=== PATIENT | male | born 1960 | race Caucasian/White ===

== ENCOUNTER 2019-03-10 13:52 | Emergency (ER) | payer MEDICAID ==
[~2019-03-10] VITALS: Ht 170.2 cm; Wt 77.1 kg
[~2019-03-10 13:52] MED LIST: ASPI325T4 PO; MULTTAB61 PO
[2019-03-10 14:31] LABS: Basophils # (auto) 0.2 uL; Eosinophils # (auto) 0 uL; Eosinophils % (auto) 0.5 % (0.0-7.0); Hematocrit 49.9 % (41.0-53.0); Hemoglobin 17.3 g/dL (13.5-17.5); Lymphocytes # (auto) 2.2 uL; Lymphocytes % (auto) 22.7 % (10.0-50.0); Mean Corpuscular Hemoglobin 29.7 pg (28.0-32.0); Mean Corpuscular Hgb Conc. 34.6 g/dL (32.0-36.0); Mean Corpuscular Volume 85.8 fL (80.0-100.0); Monocytes # (auto) 0.5 uL; Monocytes % (auto) 4.8 % (0.0-12.0); Neutrophils # (auto) 6.7 uL; Nucleated Red Blood Cells % 0.1 %; Platelet Count (auto) 354 10^3/uL (140-450); Red Blood Cells 5.82 10^6/uL (4.5-5.90); Red Cell Distribution Width 13.5 % (11.8-14.3); White Blood Cell 9.6 10^3/uL (4.4-10.8)
[2019-03-10 14:33] LABS: Urine Bacteria NONE SEEN /hpf (None Seen); Urine Blood 2+ /uL (Negative); Urine Hyaline Cast FEW /lpf (0 - 2); Urine Specific Gravity 1.023 (1.001-1.035); Urine WBC 103 /hpf (0 - 3)
[2019-03-10 14:37] LABS: Calcium 9.7 mg/dL (8.5-10.1)
[2019-03-10 14:43] LABS: Albumin 3.6 g/dL (3.4-5.0); BUN/Creatinine Ratio 13.7; Bilirubin, Total 0.8 mg/dL (0.2-1.0)
[2019-03-10 18:00] VITALS: BP 130/82
[2019-03-10] MEDS ORDERED: cefTRIAXone SOD 1,000 MG VL IM ONE (18:00)
[2019-03-10] MEDS ORDERED: TAMSULOSIN HYDROCHLORIDE 0.4 MG CAP PO ONE (19:15)
== END 2019-03-10 19:24 | disposition home or self-care (01) ==
LOC: ER 13:52
DX: N20.0 Calculus of kidney (principal); N21.0 Calculus in bladder; N39.0 Urinary tract infection, site not specified; F17.210 Nicotine dependence, cigarettes, uncomplicated; F12.90 Cannabis use, unspecified, uncomplicated; Z79.82 Long term (current) use of aspirin; Z89.512 Acquired absence of left leg below knee
CPT/HCPCS: 36415; 74176; 80053; 81001; 85025; 96372; 99284; J0696

== ENCOUNTER 2019-05-14 09:26 | Emergency (ER) | payer MEDICAID ==
[~2019-05-14] VITALS: Ht 170.2 cm; Wt 74.8 kg
[2019-05-14 09:40] VITALS: BP 139/90
[2019-05-14] MEDS ORDERED: cefTRIAXone SOD 1,000 MG VL IM ONE (10:45)
[2019-05-14] MEDS ORDERED: IBUPROFEN 800 MG TAB PO ONE (10:45)
== END 2019-05-14 11:04 | disposition home or self-care (01) ==
LOC: ER 09:29
DX: A46 Erysipelas (principal); F17.210 Nicotine dependence, cigarettes, uncomplicated; F12.10 Cannabis abuse, uncomplicated; Z91.030 Bee allergy status
CPT/HCPCS: 96372; 99283; J0696

== ENCOUNTER 2022-04-28 16:06 | Emergency (ER) | payer MEDICAID ==
[~2022-04-28] VITALS: Ht 170.2 cm; Wt 75.0 kg
[~2022-04-28 16:06] MED LIST changes: +MULT-1018 PO; -MULTTAB61 PO
[2022-04-28 18:10] VITALS: BP 141/104
[2022-04-28] MEDS ORDERED: CEPH-510 PO (18:39)
[2022-04-28] MEDS ORDERED: ACET-1158 PO (18:39)
[2022-04-28] MEDS ORDERED: LIDOCAINE 1% HCL (LOCAL ANESTH.) INJ 20ML MDV ID ONE (20:00)
[2022-04-28] MEDS ORDERED: BACITRACIN TOP OINT 1 UD PKG TOP ONE (20:45)
== END 2022-04-28 21:00 | disposition home or self-care (01) ==
LOC: ER 16:06
DX: S51.812A Laceration without foreign body of left forearm, initial encounter (principal); F17.210 Nicotine dependence, cigarettes, uncomplicated; F12.10 Cannabis abuse, uncomplicated; W18.00XA Striking against unspecified object with subsequent fall, initial encounter; Y93.89 Activity, other specified; Y92.89 Other specified places as the place of occurrence of the external cause; Y99.8 Other external cause status
CPT/HCPCS: 12005; 73090; 99283; J2001

== ENCOUNTER 2022-05-01 10:23 | Emergency (ER) | payer MEDICAID ==
[~2022-05-01] VITALS: Ht 170.2 cm; Wt 74.0 kg
[~2022-05-01 10:23] MED LIST changes: +ACET-1158 PO; +CEPH-510 PO
[2022-05-01 14:10] LABS: Basophils # (auto) 0.2 10 ^3/uL (0-0.2); Basophils % (auto) 1.3 % (0.0-2.0); Eosinophils # (auto) 0.2 10 ^3/uL (0-0.8); Hemoglobin 15.8 g/dL (13.5-17.5); Lymphocytes # (auto) 2.7 10 ^3/uL (0.4-5.4); Lymphocytes % (auto) 23.1 % (10.0-50.0); Mean Corpuscular Hemoglobin 28.3 pg (28.0-32.0); Mean Corpuscular Hgb Conc. 32.3 g/dL (32.0-36.0); Mean Corpuscular Volume 87.8 fL (80.0-100.0); Monocytes % (auto) 8.9 % (0.0-12.0); Neutrophils # (auto) 7.5 10 ^3/uL (1.6-8.6); Neutrophils % (auto) 64.7 % (37.0-80.0); Nucleated Red Blood Cells % 0.1 %; Red Blood Cells 5.58 10^6/uL (4.5-5.90); Red Cell Distribution Width 13.6 % (11.8-14.3); White Blood Cell 11.7 10^3/uL (4.4-10.8)
[2022-05-01 14:37] LABS: Albumin 3.1 g/dL (3.4-5.0); Calcium 9.3 mg/dL (8.5-10.1); Potassium 4.7 mmol/L (3.5-5.1)
[2022-05-01 14:43] LABS: BUN/Creatinine Ratio 27.7; Bilirubin, Total 0.4 mg/dL (0.2-1.0); Total Protein 7.3 g/dL (6.4-8.2)
[2022-05-01] MEDS ORDERED: CEFTRIAXONE SODIUM 2 GM in D5W 5% 50 ML IV ONE (19:00)
[2022-05-01] MEDS ORDERED: VANCOMYCIN 1GM/250ML 250 ML IV ONE (19:15)
[2022-05-01] MEDS ORDERED: VANCOMYCIN PER PHARMACY 1,000 MG IV SCH ×2 (19:15)
[2022-05-01] MEDS ORDERED: HYDROcodone-ACET 5/325MG TAB PO PRN (19:30)
[2022-05-01] MEDS ORDERED: ACETAMINOPHEN 325 MG TAB PO PRN (19:30)
[2022-05-01] MEDS ORDERED: SODIUM CHLORIDE 0.9% 1,000 ML IV SCH (19:30)
[2022-05-01] MEDS ORDERED: VANCOMYCIN PER PHARMACY 0 MG IV SCH (19:30)
[2022-05-01 20:00] VITALS: BP 156/98
[2022-05-01] MEDS ORDERED: MEROPENEM 1GM IVPB 100 ML IV SCH ×2 (22:00)
[2022-05-01] MEDS ORDERED: ASCORBIC ACID 500 MG TAB PO SCH (22:00)
[2022-05-02] MEDS ORDERED: ENOXAPARIN SOD 40 MG/0.4 ML SYRINGE SC SCH (10:00)
[2022-05-02] MEDS ORDERED: MULTIPLE VITAMIN TAB PO SCH (10:00)
[2022-05-02] MEDS ORDERED: ZINC SULFATE 220mg CAP or TAB PO SCH (10:00)
== END 2022-05-01 21:37 | disposition left against medical advice (07) ==
LOC: ER 10:23 → UNDOADMIN 19:24 → OVERFLOW 19:24 → UNDODISIN 21:37
DX: L02.414 Cutaneous abscess of left upper limb (principal); L03.114 Cellulitis of left upper limb; F17.210 Nicotine dependence, cigarettes, uncomplicated; Z79.82 Long term (current) use of aspirin; Z79.899 Other long term (current) drug therapy; Z91.030 Bee allergy status
CPT/HCPCS: 36415; 73200; 80053; 85025; 85652; 86141; 87040; 96365; 99284; J3370; G0378; J0696; J7060

== ENCOUNTER 2022-11-30 14:53 | Inpatient (IN) | payer MEDICAID ==
[~2022-11-30] VITALS: Ht 170.2 cm; Wt 65.0 kg
[~2022-11-30 14:53] MED LIST changes: -ACET-1158 PO; +ACET500T58 PO
[2022-11-30] MEDS ORDERED: SODIUM CHLORIDE 0.9% 1,000 ML IV ONE (20:15)
[2022-11-30] MEDS ORDERED: PROCHLORPERAZINE EDISYLATE 5 MG/ML 2ML VIAL IV ONE (20:15)
[2022-11-30 22:23] LABS: Basophils # (auto) 0.1 10 ^3/uL (0-0.2); Basophils % (auto) 1.3 % (0.0-2.0); Eosinophils # (auto) 0.3 10 ^3/uL (0-0.8); Eosinophils % (auto) 2.5 % (0.0-7.0); Hematocrit 43.8 % (41.0-53.0); Hemoglobin 14.8 g/dL (13.5-17.5); Lymphocytes # (auto) 3.2 10 ^3/uL (0.4-5.4); Lymphocytes % (auto) 29.7 % (10.0-50.0); Mean Corpuscular Hemoglobin 28.9 pg (28.0-32.0); Mean Corpuscular Hgb Conc. 33.7 g/dL (32.0-36.0); Mean Corpuscular Volume 85.9 fL (80.0-100.0); Monocytes # (auto) 1.1 10 ^3/uL (0-1.3); Monocytes % (auto) 9.7 % (0.0-12.0); Neutrophils # (auto) 6.2 10 ^3/uL (1.6-8.6); Neutrophils % (auto) 56.8 % (37.0-80.0); Nucleated Red Blood Cells % 0.1 %; Red Cell Distribution Width 14.7 % (11.8-14.3); White Blood Cell 10.9 10^3/uL (4.4-10.8)
[2022-11-30 22:33] LABS: INR 0.97 (0.9-1.15); Partial Thromboplastin Time 26.2 sec (24.6-33.4)
[2022-11-30 22:43] LABS: Albumin 2.7 g/dL (3.4-5.0); Calcium 7.7 mg/dL (8.5-10.1); Potassium 3.8 mmol/L (3.5-5.1)
[2022-11-30 22:47] LABS: BUN/Creatinine Ratio 20.5 (10.0-20.0); Bilirubin, Total 0.8 mg/dL (0.2-1.0); Total Protein 6.4 g/dL (6.4-8.2)
[2022-11-30] MEDS ORDERED: CLINDAMYCIN 600MG IV 50 ML IV ONE (23:00)
[2022-11-30] MEDS ORDERED: KETOROLAC TROMETH 30 MG/ML 1ML VIAL IV ONE (23:15)
[2022-11-30] MEDS ORDERED: MELO10CA2 PO (23:17)
[2022-11-30] MEDS ORDERED: CLIN300C70 PO (23:17)
[2022-12-01] MEDS ORDERED: ONDANSETRON HCL 4 MG/2 ML VIAL IV PRN (00:15)
[2022-12-01] MEDS ORDERED: DOCUSATE SOD 100 MG CAP PO PRN (00:15)
[2022-12-01] MEDS ORDERED: NITROGLYCERIN 0.4 MG SL TAB SL PRN (00:15)
[2022-12-01] MEDS ORDERED: MORPHINE SULFATE INJ 2 MG/ml SYRG IV PRN ×2 (00:15)
[2022-12-01] MEDS: ACETAMINOPHEN 325 MG TAB PO PRN (03:39)
[2022-12-01 05:33] LABS: Basophils # (auto) 0.4 10 ^3/uL (0-0.2); Basophils % (auto) 3.6 % (0.0-2.0); Eosinophils # (auto) 0.3 10 ^3/uL (0-0.8); Eosinophils % (auto) 2.4 % (0.0-7.0); Hematocrit 44.3 % (41.0-53.0); Hemoglobin 14.8 g/dL (13.5-17.5); Lymphocytes % (auto) 28.2 % (10.0-50.0); Mean Corpuscular Hemoglobin 28.6 pg (28.0-32.0); Mean Corpuscular Hgb Conc. 33.3 g/dL (32.0-36.0); Monocytes % (auto) 9.1 % (0.0-12.0); Neutrophils # (auto) 6.1 10 ^3/uL (1.6-8.6); Neutrophils % (auto) 56.7 % (37.0-80.0); Nucleated Red Blood Cells % 0.1 %; Red Blood Cells 5.16 10^6/uL (4.5-5.90); Red Cell Distribution Width 14.8 % (11.8-14.3); White Blood Cell 10.8 10^3/uL (4.4-10.8)
[2022-12-01 05:40] LABS: Albumin 2.7 g/dL (3.4-5.0); Calcium 7.8 mg/dL (8.5-10.1); Potassium 3.9 mmol/L (3.5-5.1)
[2022-12-01 05:44] LABS: BUN/Creatinine Ratio 28.4 (10.0-20.0); Total Protein 6.6 g/dL (6.4-8.2)
[2022-12-01] MEDS: SODIUM CHLOR 0.9% PF (SALINE LOCK) 10ML VIAL/SYR IV SCH ×3 (06:00→22:05)
[2022-12-01] MEDS ORDERED: CLINDAMYCIN 600MG IV 50 ML IV SCH (06:00)
[2022-12-01] MEDS: SOD CHL 0.45% 1,000 ML IV SCH ×2 (12:49→21:44)
[2022-12-01] MEDS ORDERED: PIPERACILLIN-TAZOB 3.375GM 100 ML IV SCH (14:00)
[2022-12-01] MEDS ORDERED: CEFTRIAXONE SODIUM 2 GM in D5W 5% 100 ML IV ONE (18:45)
[2022-12-01] MEDS: metroNIDAZOLE 500MG/100ML 100 ML IV SCH (22:48)
[2022-12-02] MEDS: SODIUM CHLOR 0.9% PF (SALINE LOCK) 10ML VIAL/SYR IV SCH ×3 (06:00→21:25)
[2022-12-02] MEDS: metroNIDAZOLE 500MG/100ML 100 ML IV SCH ×3 (07:40→21:16)
[2022-12-02 07:46] LABS: Basophils # (auto) 0 10 ^3/uL (0-0.2); Basophils % (auto) 0.3 % (0.0-2.0); Eosinophils # (auto) 0.1 10 ^3/uL (0-0.8); Eosinophils % (auto) 0.9 % (0.0-7.0); Hematocrit 46.7 % (41.0-53.0); Hemoglobin 15.5 g/dL (13.5-17.5); Lymphocytes # (auto) 2.4 10 ^3/uL (0.4-5.4); Lymphocytes % (auto) 20.2 % (10.0-50.0); Mean Corpuscular Hemoglobin 28.3 pg (28.0-32.0); Mean Corpuscular Hgb Conc. 33.1 g/dL (32.0-36.0); Mean Corpuscular Volume 85.5 fL (80.0-100.0); Monocytes # (auto) 1.1 10 ^3/uL (0-1.3); Monocytes % (auto) 9.2 % (0.0-12.0); Neutrophils # (auto) 8.1 10 ^3/uL (1.6-8.6); Neutrophils % (auto) 69.4 % (37.0-80.0); Nucleated Red Blood Cells % 0.1 %; Red Blood Cells 5.46 10^6/uL (4.5-5.90); Red Cell Distribution Width 14.7 % (11.8-14.3); White Blood Cell 11.7 10^3/uL (4.4-10.8)
[2022-12-02 08:11] LABS: Albumin 2.7 g/dL (3.4-5.0); Calcium 8.3 mg/dL (8.5-10.1); Potassium 4.3 mmol/L (3.5-5.1)
[2022-12-02 08:15] LABS: BUN/Creatinine Ratio 27.9 (10.0-20.0); Bilirubin, Total 0.6 mg/dL (0.2-1.0); Total Protein 6.9 g/dL (6.4-8.2)
[2022-12-02] MEDS: SOD CHL 0.45% 1,000 ML IV SCH ×2 (10:01→18:58)
[2022-12-02] MEDS: CEFTRIAXONE SODIUM 2 GM in D5W 5% 100 ML IV SCH (10:01)
[2022-12-02] MEDS: ACETAMINOPHEN 325 MG TAB PO PRN (16:46)
[2022-12-02 16:48] VITALS: BP 157/87
[2022-12-02 20:04] LABS: Hepatitis C Antibody Positive (Negative)
[2022-12-02 22:00] VITALS: BP 132/93
[2022-12-03] VITALS (7 sets, daily range): BP systolic 134–163; BP diastolic 82–98
[2022-12-03] MEDS: metroNIDAZOLE 500MG/100ML 100 ML IV SCH ×3 (06:13→23:23)
[2022-12-03] MEDS: SODIUM CHLOR 0.9% PF (SALINE LOCK) 10ML VIAL/SYR IV SCH ×3 (06:13→22:00)
[2022-12-03] MEDS: CEFTRIAXONE SODIUM 2 GM in D5W 5% 100 ML IV SCH (09:29)
[2022-12-03] MEDS ORDERED: IBUP-1454 PO (10:56)
[2022-12-03] MEDS ORDERED: AMOX500T86 PO (10:56)
[2022-12-03] MEDS ORDERED: FAMO-161 PO (10:56)
[2022-12-03 12:39] LABS: Alcohol, Urine < 3.0 mg/dL (0-10); Amphetamine Screen, Urine NEGATIVE (NEGATIVE); Barbiturate Scree,Urine NEGATIVE (NEGATIVE); Benzodiazephine Screen, Urine NEGATIVE (NEGATIVE); Cannabinoid Screen, Urine POSITIVE (NEGATIVE); Cocaine Screen, Urine NEGATIVE (NEGATIVE); Opiate Scree,Urine NEGATIVE (NEGATIVE); Phencyclidine Screen, Urine NEGATIVE (NEGATIVE)
[2022-12-03] MEDS: hydrALAZINE HCL 20 MG/ML VL IV PRN (18:04)
[2022-12-03] MEDS: ACETAMINOPHEN 325 MG TAB PO PRN ×2 (23:09→23:23)
[2022-12-04] MEDS: hydrALAZINE HCL 20 MG/ML VL IV PRN ×2 (03:03→12:18)
[2022-12-04 05:00] VITALS: BP 124/78
[2022-12-04] MEDS: SODIUM CHLOR 0.9% PF (SALINE LOCK) 10ML VIAL/SYR IV SCH ×3 (05:55→22:02)
[2022-12-04] MEDS: metroNIDAZOLE 500MG/100ML 100 ML IV SCH ×3 (05:55→20:59)
[2022-12-04] MEDS: ACETAMINOPHEN 325 MG TAB PO PRN ×2 (05:56→18:17)
[2022-12-04 08:00] VITALS: BP 128/85
[2022-12-04 09:00] VITALS: BP 128/85
[2022-12-04] MEDS: CEFTRIAXONE SODIUM 2 GM in D5W 5% 100 ML IV SCH (10:18)
[2022-12-04 13:00] VITALS: BP 161/97
[2022-12-04 17:00] VITALS: BP 133/81
[2022-12-04] MEDS: HYDROcodone-ACET 5/325MG TAB PO PRN (21:33)
[2022-12-04 22:00] VITALS: BP 156/91
[2022-12-05 05:00] VITALS: BP 127/87
[2022-12-05] MEDS: metroNIDAZOLE 500MG/100ML 100 ML IV SCH ×3 (06:09→20:37)
[2022-12-05] MEDS: HYDROcodone-ACET 5/325MG TAB PO PRN ×2 (06:09→20:37)
[2022-12-05] MEDS: SODIUM CHLOR 0.9% PF (SALINE LOCK) 10ML VIAL/SYR IV SCH ×3 (06:10→23:49)
[2022-12-05 09:08] VITALS: BP 143/92
[2022-12-05] MEDS: ASPirin-EC 81 mg tab PO SCH (10:54)
[2022-12-05] MEDS: amLODIPine BESYLATE 5 MG TAB PO SCH (10:55)
[2022-12-05] MEDS: CEFTRIAXONE SODIUM 2 GM in D5W 5% 100 ML IV SCH (10:58)
[2022-12-05 13:00] VITALS: BP 150/105
[2022-12-05 17:12] VITALS: BP 112/76
[2022-12-05 22:00] VITALS: BP 140/93
[2022-12-05] MEDS: ACETAMINOPHEN 325 MG TAB PO PRN (23:52)
[2022-12-06 05:00] VITALS: BP 155/101
[2022-12-06] MEDS: ACETAMINOPHEN 325 MG TAB PO PRN (06:38)
[2022-12-06] MEDS: SODIUM CHLOR 0.9% PF (SALINE LOCK) 10ML VIAL/SYR IV SCH (06:38)
[2022-12-06] MEDS: metroNIDAZOLE 500MG/100ML 100 ML IV SCH (06:38)
[2022-12-06 08:00] VITALS: BP 135/87
[2022-12-06] MEDS: ASPirin-EC 81 mg tab PO SCH (09:33)
[2022-12-06] MEDS: amLODIPine BESYLATE 5 MG TAB PO SCH (09:34)
[2022-12-06] MEDS: CEFTRIAXONE SODIUM 2 GM in D5W 5% 100 ML IV SCH (09:35)
[2022-12-06 12:00] VITALS: BP 149/98
[2022-12-06] MEDS ORDERED: AMOXICILLIN/CLAVULAN 500 MG TAB PO SCH (14:00)
== END 2022-12-06 16:00 | disposition left against medical advice (07) | DRG 383 ==
LOC: EDBD 14:53 → ER 14:53 → OVERFLOW 12-01 00:02 → TELE-CENTR 12-02 16:21 → CENTRAL 12-02 17:50
PROVIDERS: ADMIT Nurse Practitioner Family; ATTEND Hospitalist
DX: L03.211 Cellulitis of face (principal); Z89.612 Acquired absence of left leg above knee; D72.829 Elevated white blood cell count, unspecified; K02.9 Dental caries, unspecified; R51.9 Headache, unspecified; Z53.29 Procedure and treatment not carried out because of patient's decision for other reasons; K12.2 Cellulitis and abscess of mouth; Z20.822 Contact with and (suspected) exposure to COVID-19; Z91.030 Bee allergy status
CPT/HCPCS: 36415; 70450; 70486; 80053; 80307; 82962; 85025; 85610; 85730; 86803; 87340; 87426; 93971; 96361; 96365; 96375; G0378; J0696; J1885; J2543; J3490; J7060

== ENCOUNTER 2024-07-23 08:13 | Emergency (ER) | payer MEDICAID ==
[~2024-07-23] VITALS: Ht 340.4 cm; Wt 79.0 kg
[~2024-07-23 08:13] MED LIST changes: +AMOX500T86 PO; -ASPI325T4 PO; +ASPI325T6 PO; +CLIN1CAP70 PO; +FAMO-161 PO; +IBUP-1454 PO; +MELO10CA2 PO
[2024-07-23 08:32] VITALS: PULSE 121; RESP 18; TEMP 98; O2SAT 100
--- NOTE | 2024-07-23 08:41 | ED.PDOC ---
Musculoskeletal HPI Comments A 64 YEAR OLD MALE BROUGHT IN BY AMBULANCE PRESENTS TO THE ED WITH COMPLAINT OF LEFT HIP PAIN STATUS POST FALL. PATIENT STATES HE USES CRUTCHES DUE TO A LEFT [id number] AMPUTATION AND NOTES HIS CRUTCHES GOT CAUGHT ON SOMETHING CAUSING HIM TO FALL AND LAND ON THE LEFT SIDE OF HIS BODY THIS MORNING. PATIENT REPORTS HE IS NOW EXPERIENCING LEFT HIP PAIN THAT IS WORSE WITH MOVEMENT. PATIENT DENIES HEAD INJURY, NECK INJURY, LOC, FEVER, CHILLS, SHORTNESS OF BREATH, CHEST PAIN, ABDOMINAL PAIN, NAUSEA, VOMITING, HEADACHE, OR OTHER COMPLAINTS. NO OTHER SYMPTOMS OR MODIFYING FACTORS AT THIS TIME. PATIENT IS ALERT, ORIENTED X 4, AND HAS STEADY GAIT. Chief Complaint: Fall Injury Time Seen by MD: 08:18 Primary Care Provider: ELI Hunt Notes: Nurses Notes, [place] [employer] Notes, Medications, Allergies Allergies: Coded Allergies: Bee Venom (Verified Allergy, Unknown, 04/01/16) Home Meds Active Scripts Hydrocodone-Acetaminophen (Hydrocodone Bitartrate/AC 5-325 mg) 1 Tab Tab, 1 TAB PO BID, #14 TAB Prov:JOHNNY KNOTT 07/23/24 Famotidine (Pepcid AC) 20 Mg Tab, 20 MG PO DAILY, #20 TAB Prov:GILBERTO GIL MD 12/03/22 Ibuprofen (Ibuprofen) 600 Mg Tab, 1 TAB PO TID PRN, #30 TAB Prov:GILBERTO GIL MD 12/03/22 Amoxicillin & Pot Clavulanate (Augmentin) 500 Mg Tab, 1 TAB PO BID, #20 TAB Prov:GILBEROT GIL MD 12/03/22 Clindamycin Hcl (Clindamycin Hcl) 300 Mg Cap, 300 MG PO QID for 10 Days, #40 CAP Prov:JUAN REED MD 11/30/22 Meloxicam (Meloxicam) 10 Mg Cap, 10 MG PO DAILY PRN, #10 CAP Prov:JUAN REED MD 11/30/22 Acetaminophen (Acetaminophen) 500 Mg Tab, 500 MG PO QIDP PRN, #30 TAB 0 Refills Prov:MARLYN MONTGOMERY 04/28/22 Cephalexin ( Keflex 500) 500 Mg Cap, 1 CAP PO BID for 7 Days, #14 CAP 0 Refills Prov:MARLYN MONTGOMERY 04/28/22 Reported Medications Multiple Vitamin (Multivitamins) Tab, 1 TAB PO DAILY, #90 TAB 3 Refills 04/01/16 Aspirin (Aspirin) 325 Mg Tab, 325 MG PO DAILY for 30 Days, MG 04/01/16 Information Source: Patient, Emergency Med Personnel Mode of Arrival: EMS Location: Left Extremity Location: Hip Timing: Hours Prehospital treatment: None Severity: Moderate Able to Move Extremity: Yes Bear Weight: Limited Pain: Moderate Mechanism: Blunt Trauma Circumstances: Fall Onset of Symptoms: After Trauma Symptoms: Pain DVT Risk Factors: NONE Last Tetanus: Unknown Associated signs and symptoms: Hip pain Past Medical History PAST MEDICAL HISTORY: Denies Surgical History: AKA (LEFT [id number] AMPUTATION) Family History Family History: Reviewed,noncontributory to illness Social History Smoker: Cigarettes, Less Than 1 Pack/Day Alcohol: Occasionally Drugs: Marijuana Lives In: Home Constitutional: denies: chills, diaphoresis, fatigue, fever, malaise, sweats, weakness, others EENTM: denies: blurred vision, double vision, ear bleeding, ear discharge, ear drainage, ear pain, ear ringing, eye pain, eye redness, hearing loss, mouth pain, mouth swelling, nasal discharge, nose bleeding, nose congestion, nose pain, photophobia, tearing, throat pain, throat swelling, voice changes, others Respiratory: denies: cough, hemoptysis, orthopnea, SOB at rest, shortness of breath, SOB with excertion, stridor, wheezing, others Cardiovascular: denies: chest pain, dizzy spells, diaphoresis, Dyspnea on exertion, edema, irregular heart beat, left arm pain, lightheadedness, palpitations, PND, syncope, others Gastrointestinal: denies: abdomen distended, abdominal pain, blood streaked bowels, constipated, diarrhea, dysphagia, difficulty swallowing, hematemesis, melena, nausea, poor appetite, poor fluid intake, rectal bleeding, rectal pain, vomiting, others Genitourinary: denies: burning, dysuria, flank pain, frequency, hematuria, incontinence, penile discharge, penile sore, pain, testicle pain, testicle swelling, urgency, others Neurological: denies: dizziness, fainting, headache, left sided numbness, left sided weakness, numbness, paresthesia, pre-existing deficit, right sided numbness, right sided weakness, seizure, speech problems, tingling, tremors, weakness, others Musculoskeletal: reports: joint pain, muscle pain, others (LEFT HIP PAIN); denies: back pain, gout, joint swelling, muscle stiffness, neck pain Integumetry: denies: bruises, change in color, change in hair/nails, dryness, laceration, lesions, lumps, rash, wounds, others Allergic/Immunocompromised: denies: Difficulty Healing, Frequent Infections, Hives, Itching, others Hematologic/Lymphatic: denies: anemia, blood clots, easy bleeding, easy br uising, swollen glands, others Endocrine: denies: excessive hunger, excessive sweating, excessive thirst, excessive urination, flushing, intolerance to cold, intolerance to heat, unexplained weight gain, unexplained weight loss, others Psychiatric: denies: anxiety, bipolar disorder, depression, hopeless, panic disorder, schizophrenia, sleepless, suicidal, others All Other Systems: Reviewed and Negative Physical Exam General Appearance: Mild Distress, Normal HEENT: Normal ENT Inspection, PERRL/EOMI, Pharynx Normal, TMs Normal Neck: Full Range of Motion, Non-Tender, Normal, Normal Inspection Respiratory: Chest Non-Tender, Lungs Clear, No Accessory Muscle Use, No Respiratory Distress, Normal Breath Sounds Cardiovascular: No Edema, No JVD, No Murmur, No Gallop, Normal Peripheral Pulses, Regular Rate/Rhythm Breast Exam: Deferred Gastrointestinal: No Organomegaly, Non Tender, No Pulsatile Mass, Normal Bowel Sounds, Soft Genitalia: Deferred Pelvic: Deferred Rectal: Deferred Extremities: Decreased range of motion, No calf tenderness, Normal capillary refill, No pedal edema, Tender (LEFT UPPER HIP, NO BONY TENDERNESS, SWELLING AND DEFORMITY, NO OPEN WOUND SEEN. LEFT AKA NOTED.) Musculoskeletal : Apperance: Normal Neurologic: Alert, radio control crane operator II-XII nml as Tested, No Motor Deficits, Normal Affect, Normal Mood, No Sensory Deficits Cerebellar Function: Normal Reflexes: Normal Skin: Dry, Normal Color, Warm Peripheral Pulses: 2+ carotid (R), 2+ carotid (L) Lymphatic: No Adenopathy Was a procedure done? Was a procedure done?: No Differential Diagnosis EXT Differential Diagnosis: Fracture, Sprain, Dislocation, DJD, Contusion, Strain, Arthritis, Bursitis X-Ray, Labs, Meds, VS Vital Signs Date Time Temp Pulse Resp B/P (MAP) Pulse Ox O2 Delivery O2 Flow Rate FiO2 07/23/24 08:32 98.0 121 18 174/101 (125) 100 98.0 07/23/24 08:18 98.0 121 18 174/101 (125) 100 Current Medications Medications (Trade) Dose Ordered Sig/Linette Route Start Time Stop Time Status Last Admin Acetaminophen/ Hydrocodone Bitart ([place] 10/325MG Tab) 1 tab ONCE ONCE PO 07/23/24 08:45 07/23/24 08:46 DC 07/23/24 08:58 CLINICAL INDICATION: Trauma, HX OF AKA 10 YEARS AGO TECHNIQUE: 1 radiographic views of the pelvis and 2 views of the left hip were obtained. Comparison: None FINDINGS/IMPRESSION: Status post above the knee left amputation. There is a chronic fracture deformity at the amputation stump. Moderate osteoarthrosis of the left femoroacetabular joint. No definite evidence of acute fracture. ATED BY: CRESCENCIO LIND MD DICTATED DATE/TIME: 07/23/24908 SIGNED BY: CRESCENCIO LIND MD SIGNED DATE/TIME: 07/23/24908 CC: X-Ray, Labs, Meds, VS Comment EXTERNAL MEDICAL RECORDS REVIEWED: [NONE] INDEPENDENT HISTORIANS: [NONE] SOCIAL DETERMINANTS OF HEALTH: [NONE] LABS ORDERED: NONE REVIEWED AND INTERPRETED RESULTS: NONE IMAGING ORDERED: XR HIP LT TREATMENTS ORDERED: NORCO 5/325MG PO PROCEDURES PERFORMED: NONE CRITICAL CARE TIME: NONE I HAVE DISCUSSED THE PATIENT WITH THE ATTENDING PHYSICIAN DR. FERRARO AND HE AGREES WITH THE PATIENT'S PLAN OF CARE AND DISPOSITION. BASED ON HISTORY OF PRESENT ILLNESS, AND PHYSICAL EXAM, PATIENT WILL BE DISCHARGED HOME. DISCUSSED PLAN FOR DISCHARGE HOME WITH RX []. MEDICATION WARNINGS GIVEN. SHARED DECISION MAKING: PATIENT INSTRUCTED TO FOLLOW UP WITH PRIMARY CARE PROVIDER IN 1-2 DAYS FOR RE-EVALUATION OF SYMPTOMS. PATIENT VERBALIZES UNDERSTANDING TO RETURN TO ED FOR NEW OR WORSENING SYMPTOMS OR IF FOLLOW UP WITH PCP CANNOT BE OBTAINED. PATIENT FEELS COMFORTABLE GOING HOME AT THIS TIME. ALL QUESTIONS ADDRESSED AT TIME OF DISCHARGE. Images Reviewed?: Images reviewed and evaluated by me Time of 1ST Reevaluation: 09:40 Reevaluation 1ST: Improved Patient Education/Counseling: Diagnosis, Treatment, Need For Follow Up Family Education/Counseling: Diagnosis, Treatment, No Family Present Medical Screening: No EMC Exist At This Time Departure 1 Departure Time of Disposition: 09:40 Impression: Primary Impression: Degenerative joint disease of left hip Qualified Codes: M16.12 - Unilateral primary osteoarthritis, left hip Additional Impressions: Chronic fracture Hx of AKA (above knee amputation) Qualified Codes: Z89.612 - Acquired absence of left leg above knee Disposition: 01 HOME / SELF CARE / HOMELESS Condition: Stable Additional Instructions: FOLLOW-UP WITH PCP IN 1 TO 2 DAYS. TAKE MEDICATIONS PRESCRIBED. RETURN TO ED FOR ANY NEW OR WORSENING SYMPTOMS. e-Prescriptions Hydrocodone-Acetaminophen (Hydrocodone Bitartrate/AC 5-325 mg) 1 Tab Tab 1 TAB PO BID, #14 TAB Prov: JOHNNY KNOTT 07/23/24 Discharged With: Self, Relative Critical Care Note Critical Care Time?: No Stability Stability form required: No I personally scribed for JOHNNY KNOTT ([email or web address]) on 07/23/24 at 08:41. Electronically submitted by Lawrence Elizalde (CHRISTIAN). I personally scribed for JOHNNY KNOTT ([email or web address]) on 07/23/24 at 09:17. Electronically submitted by Lawrence Elizalde (CHRISTIAN). JOHNNY KNOTT Jul 23, 2024 08:41
[2024-07-23] MEDS: HYDROcodone-ACET 10/325MG TAB PO ONE (08:58)
--- NOTE | 2024-07-23 09:10 | DVH ---
CLINICAL INDICATION: Trauma, HX OF AKA 10 YEARS AGO TECHNIQUE: 1 radiographic views of the pelvis and 2 views of the left hip were obtained. Comparison: None FINDINGS/IMPRESSION: Status post above the knee left amputation. There is a chronic fracture deformity at the amputation stump. Moderate osteoarthrosis of the left femoroacetabular joint. No definite evidence of acute frac ture.
[2024-07-23] MEDS ORDERED: HYDR-4902 PO (09:30)
[2024-07-23 09:40] VITALS: BP 150/98
== END 2024-07-23 09:42 | disposition home or self-care (01) ==
LOC: EDBD 08:13 → ER 08:13
DX: M16.12 Unilateral primary osteoarthritis, left hip (principal); M84.459A Pathological fracture, hip, unspecified, initial encounter for fracture; F17.210 Nicotine dependence, cigarettes, uncomplicated; Z91.030 Bee allergy status; Z89.612 Acquired absence of left leg above knee
CPT/HCPCS: 73502

== ENCOUNTER 2024-07-27 12:10 | Emergency (ER) | payer MEDICAID ==
[~2024-07-27] VITALS: Ht 170.2 cm; Wt 78.0 kg
[~2024-07-27 12:10] MED LIST changes: +HYDR-4902 PO
[2024-07-27 12:41] VITALS: BP 182/122; PULSE 102; RESP 16; O2SAT 97
--- NOTE | 2024-07-27 13:10 | ED.PDOC ---
Gopal. trauma (HPI) HPI Comments 64 y/o M, presents to the ED for CC s/p fall. Patient states, that he fell on his left stump x3ays ago and is experiencing left sided pain as a result. Patient comments on, current 01/23. Patient denies any head injury, LOC, headache, weakness, fatigue, fever, chills, or N/V/D. No other symptoms or modifying factors at this time. Chief Complaint: Fall Injury Time Seen by MD: 12:45 Primary Care Provider: ELI Hunt notes: Nurses Notes, Medications, Allergies Allergies: Coded Allergies: Bee Venom (Verified Allergy, Unknown, 04/01/16) Home Meds Active Scripts Hydrocodone-Acetaminophen (Hydrocodone Bitartrate/AC 5-325 mg) 1 Tab Tab, 1 TAB PO BID, #14 TAB Prov:JOHNNY KNOTT 07/23/24 Famotidine (Pepcid AC) 20 Mg Tab, 20 MG PO DAILY, #20 TAB Prov:GILBERTO GIL MD 12/03/22 Ibuprofen (Ibuprofen) 600 Mg Tab, 1 TAB PO TID PRN, #30 TAB Prov:GILBERTO GIL MD 12/03/22 Amoxicillin & Pot Clavulanate (Augmentin) 500 Mg Tab, 1 TAB PO BID, #20 TAB Prov:GILBERTO GIL MD 12/03/22 Clindamycin Hcl (Clindamycin Hcl) 300 Mg Cap, 300 MG PO QID for 10 Days, #40 CAP Prov:JUAN REED MD 11/30/22 Meloxicam (Meloxicam) 10 Mg Cap, 10 MG PO DAILY PRN, #10 CAP Prov:JUAN REED MD 11/30/22 Acetaminophen (Acetaminophen) 500 Mg Tab, 500 MG PO QIDP PRN, #30 TAB 0 Refills Prov:MARLYN MONTGOMERY 04/28/22 Cephalexin ( Keflex 500) 500 Mg Cap, 1 CAP PO BID for 7 Days, #14 CAP 0 Refills Prov:MARLYN MONTGOMERY 04/28/22 Reported Medications Multiple Vitamin (Multivitamins) Tab, 1 TAB PO DAILY, #90 TAB 3 Refills 04/01/16 Aspirin (Aspirin) 325 Mg Tab, 325 MG PO DAILY for 30 Days, MG 04/01/16 Information Source: Patient Mode of Arrival: Wheelchair Severity: Moderate Timing: Days Duration: Since onset Location: (L) Thigh Location of laceration: None Mechanism: Fall Associated signs and symtoms: None Past Medical History PAST MEDICAL HISTORY: HTN Surgical History: AKA Surgical History (Other): lithotripsy Family History Family History: Reviewed,noncontributory to illness Social History Smoker: Cigarettes, Less Than 1 Pack/Day Alcohol: Occasionally Drugs: Marijuana Lives In: Home Constitutional: denies: chills, diaphoresis, fatigue, fever, malaise, sweats, weakness, others EENTM: denies: blurred vision, double vision, ear bleeding, ear discharge, ear drainage, ear pain, ear ringing, eye pain, eye redness, hearing loss, mouth pain, mouth swelling, nasal discharge, nose bleeding, nose congestion, nose pain, photophobia, tearing, throat pain, throat swelling, voice changes, others Respiratory: denies: cough, hemoptysis, orthopnea, SOB at rest, shortness of breath, SOB with excertion, stridor, wheezing, others Cardiovascular: denies: chest pain, dizzy spells, diaphoresis, Dyspnea on exertion, edema, irregular heart beat, left arm pain, lightheadedness, palpitations, PND, syncope, others Gastrointestinal: denies: abdomen distended, abdominal pain, blood streaked bowels, constipated, diarrhea, dysphagia, difficulty swallowing, hematemesis, melena, nausea, poor appetite, poor fluid intake, rectal bleeding, rectal pain, vomiting, others Genitourinary: denies: burning, dysuria, flank pain, frequency, hematuria, incontinence, penile discharge, penile sore, pain, testicle pain, testicle swelling, urgency, others Neurological: denies: dizziness, fainting, headache, left sided numbness, left sided weakness, numbness, paresthesia, pre-existing deficit, right sided numbness, right sided weakness, seizure, speech problems, tingling, tremors, weakness, others Musculoskeletal: denies: back pain, gout, joint pain, joint swelling, muscle pain, muscle stiffness, neck pain, others Integumetry: denies: bruises, change in color, change in hair/nails, dryness, laceration, lesions, lumps, rash, wounds, others Allergic/Immunocompromised: denies: Difficulty Healing, Frequent Infections, Hives, Itching, others Hematologic/Lymphatic: denies: anemia, blood clots, easy bleeding, easy bruising, swollen glands, others Endocrine: denies: excessive hunger, excessive sweating, excessive thirst, excessive urination, flushing, intolerance to cold, intolerance to heat, unexplained weight gain, unexplained weight loss, others Psychiatric: denies: anxiety, bipolar disorder, depression, hopeless, panic disorder, schizophrenia, sleepless, suicidal, others All Other Systems: Reviewed and Negative Physical Exam General Appearance: Mild Distress HEENT: Normal ENT Inspection, Pharynx Normal, TMs Normal Neck: Full Range of Motion, Non-Tender, Normal, Normal Inspection Respiratory: Chest Non-Tender, Lungs Clear, No Accessory Muscle Use, No Respiratory Distress, Normal Breath Sounds Cardiovascular: No Edema, No JVD, No Murmur, No Gallop, Normal Peripheral Pulses, Regular Rate/Rhythm Breast Exam: Deferred Gastrointestinal: No Organomegaly, Non Tender, No Pulsatile Mass, Normal Bowel Sounds, Soft Genitalia: Deferred Pelvic: Deferred Rectal: Deferred Extremities: No calf tenderness, Normal capillary refill, No pedal edema, Other (Tenderness to the stump on the left AKA with some bruising) Musculoskeletal : Apperance: Normal Neurologic: Alert, rock wool applicator II-XII nml as Tested, No Motor Deficits, Normal Affect, Normal Mood, No Sensory Deficits Cerebellar Function: Normal Reflexes: Normal Skin: Dry, Normal Color, Warm Lymphatic: No Adenopathy Was a procedure done? Was a procedure done?: No Differential Diagnosis Multiple Trauma: Abrasions, Contusion, Hematoma X-Ray, Labs, Meds, VS Vital Signs Date Time Temp Pulse Resp B/P (MAP) Pulse Ox O2 Delivery O2 Flow Rate FiO2 07/27/24 12:41 98.3 102 16 182/122 (142) [address] scan of the pelvis with the patient was eloped from the department's Images Reviewed?: Images reviewed and evaluated by me Time of 1ST Reevaluation: 13:25 Reevaluation 1ST: Unchanged Patient Education/Counseling: Diagnosis, Treatment, Prognosis, Need For Follow Up Family Education/Counseling: No Family Present Additional Information - I reviewed the following notes from patient's past medical encounters: 07/23/24 dx: DEGENERATIVE JOINT - The following tests were ordered, and results were reviewed by me: CT abdomen and pelvis - I reviewed and agreed with the following test results read by other provider: CT abdomen and pelvis - I discussed treatments and results with medical personnel and: PATIENT Departure 1 Departure Time of Disposition: 17:25 Impression: Primary Impression: Contusion of leg Qualified Codes: S80.12XA - Contusion of left lower leg, initial encounter Additional Impression: History of fall Disposition: 07 LEFT AWOL/ELOPED Condition: Fair Critical Care Note Critical Care Time?: No Stability Stability form required: No Heart Score Heart Score: Heart Score Response (Comments) Value History N/A 0 EKG N/A 0 Age N/A 0 Risk Factors N/A 0 Troponin N/A 0 Total 0 I personally scribed for MANI RODRIGUEZ MD ([email or web address]) on 07/27/24 at 13:10. Electronically submitted by Marifer Osei ([email or web address]). I personally scribed for MANI RODRIGUEZ MD ([email or web address]) on 07/27/24 at 14:58. Electronically submitted by Marifer Osei ([email or web address]). MANI RODRIGUEZ MD Jul 27, 2024 13:10
--- NOTE | 2024-07-28 13:40 | DVH ---
History: fall, trauma Comparison Study: Left hip radiograph dated 07/23/2024 Technique: Multidetector spiral CT of the pelvis was performed from iliac crests to pubic symphysis. Axial, coronal and sagittal multiplanar reformats were performed by the technologist on a separate workstation. Radiation Dose : CT Dose: CTDI volume is 12.18 mGy. Dose-length product is 480.0 mGy*cm Findings: Visualized bowel: Small bowel and colon are normal in caliber and distribution. The appendix is not visualized; however, no secondary findings of acute appendicitis identified. Ascites: Absent Lymphadenopathy: No pelvic or mesenteric lymphadenopathy. Pelvis Wall and Mesentery: Unremarkable. Vasculature: The visualized abdominal aorta is normal in size and caliber. Abdominal and pelvic vess els demonstrate normal enhancement. 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 Presumed postsurgical skin thickening and heterotopic ossification is present in the lateral, proxima l left thigh. No acute fracture or dislocation. Bladder: Numerous bladder diverticulum are present. IMPRESSION: No acute fracture or dislocation.
== END 2024-07-27 17:27 | disposition left against medical advice (07) ==
LOC: ER 12:10
DX: S70.12XA Contusion of left thigh, initial encounter (principal); I10 Essential (primary) hypertension; F12.90 Cannabis use, unspecified, uncomplicated; Z79.84 Long term (current) use of oral hypoglycemic drugs; Z98.890 Other specified postprocedural states; Z88.6 Allergy status to analgesic agent; Z79.899 Other long term (current) drug therapy; W18.39XA Other fall on same level, initial encounter; Y93.89 Activity, other specified; Y92.89 Other specified places as the place of occurrence of the external cause; Y99.8 Other external cause status
CPT/HCPCS: 72192

== ENCOUNTER 2024-07-29 14:56 | Inpatient (IN) | payer MEDICAID ==
[~2024-07-29] VITALS: Ht 162.6 cm; Wt 78.0 kg
[2024-07-29 15:15] VITALS: PULSE 90; RESP 18; O2SAT 98
--- NOTE | 2024-07-29 15:33 | ED.PDOC ---
Musculoskeletal HPI Comments 64 y/o M DENISSE, with PMHX of HTN presents to the ED for CC of left sided above the knee amputation stump pain. Patient states, that he has been experiencing left sided above the knee amputation stump pain x days following a fall. Patient's stump has a visible hematoma on the surface if the skin. Per EMS, in route to ED patient was visibly in distress and hypotensive; blood pressure reading at 233/140 Patient was last seen at [facility] on (07/27/24). Patient relays, recently running of his prescription for [place]. No other symptoms or modifying factors at this time. Chief Complaint: Lower Extremity Time Seen by MD: 15:20 Primary Care Provider: ELI Reviewed Notes: Nurses Notes, Assistant Project Manager Notes, Medications, Allergies Allergies: Coded Allergies: Bee Venom (Verified Allergy, Unknown, 04/01/16) Home Meds Active Scripts Hydrocodone-Acetaminophen (Hydrocodone Bitartrate/AC 5-325 mg) 1 Tab Tab, 1 TAB PO BID, #14 TAB Prov:JOHNNY KNOTT 07/23/24 Famotidine (Pepcid AC) 20 Mg Tab, 20 MG PO DAILY, #20 TAB Prov:GILBERTO GIL MD 12/03/22 Ibuprofen (Ibuprofen) 600 Mg Tab, 1 TAB PO TID PRN, #30 TAB Prov:GILBERTO GIL MD 12/03/22 Amoxicillin & Pot Clavulanate (Augmentin) 500 Mg Tab, 1 TAB PO BID, #20 TAB Prov:GILBERTO GIL MD 12/03/22 Clindamycin Hcl (Clindamycin Hcl) 300 Mg Cap, 300 MG PO QID for 10 Days, #40 CAP Prov:JUAN REED MD 11/30/22 Meloxicam (Meloxicam) 10 Mg Cap, 10 MG PO DAILY PRN, #10 CAP Prov:JUAN REED MD 11/30/22 Acetaminophen (Acetaminophen) 500 Mg Tab, 500 MG PO QIDP PRN, #30 TAB 0 Refills Prov:MARLYN MONTGOMERY 04/28/22 Cephalexin ( Keflex 500) 500 Mg Cap, 1 CAP PO BID for 7 Days, #14 CAP 0 Refills Prov:MARLYN MONTGOMERY 04/28/22 Reported Medications Multiple Vitamin (Multivitamins) Tab, 1 TAB PO DAILY, #90 TAB 3 Refills 04/01/16 Aspirin (Aspirin) 325 Mg Tab, 325 MG PO DAILY for 30 Days, MG 04/01/16 Information Source: Patient, Emergency Med Personnel Mode of Arrival: EMS Location: Left Extremity Location: Leg Timing: Days Prehospital treatment: None Severity: Moderate Able to Move Extremity: Yes Bear Weight: Limited Pain: Moderate Mechanism: None Circumstances: Fall Onset of Symptoms: After Trauma Symptoms: Swelling, Pain DVT Risk Factors: Recent trauma Associated signs and symptoms: None Past Medical History PAST MEDICAL HISTORY: HTN Surgical History: AKA Family History Family History: Reviewed,noncontributory to illness Social History Smoker: Cigarettes, Less Than 1 Pack/Day Alcohol: Occasionally Drugs: Marijuana Lives In: Home Physical Exam General Appearance: Moderate Distress HEENT: Normal ENT Inspection, Pharynx Normal, TMs Normal Neck: Full Range of Motion, Non-Tender, Normal, Normal Inspection Respiratory: Chest Non-Tender, Lungs Clear, No Accessory Muscle Use, No Respiratory Distress, Normal Breath Sounds Cardiovascular: No Edema, No JVD, No Murmur, No Gallop, Normal Peripheral Pulses, Regular Rate/Rhythm Breast Exam: Deferred Gastrointestinal: No Organomegaly, Non Tender, No Pulsatile Mass, Normal Bowel Sounds, Soft Genitalia: Deferred Pelvic: Deferred Rectal: Deferred Extremities: No calf tenderness, Normal capillary refill, No pedal edema, Other (Left AKA that has tender with ecchymosis) Musculoskeletal : Apperance: Normal Neurologic: medical device II-XII nml as Tested, No Motor Deficits, Normal Affect, Normal Mood, No Sensory Deficits Cerebellar Function: Unable to Test Reflexes: Normal Skin: Dry, Normal Color, Warm Lymphatic: No Adenopathy Was a procedure done? Was a procedure done?: No Differential Diagnosis EXT Differential Diagnosis: Fracture, Sprain, Dislocation X-Ray, Labs, Meds, VS Vital Signs Date Time Temp Pulse Resp B/P (MAP) Pulse Ox O2 Delivery O2 Flow Rate FiO2 07/29/24 17:14 93 14 160/84 (109) 96 07/29/24 17:11 93 14 160/84 07/29/24 16:41 103 14 161/98 07/29/24 16:14 103 14 161/68 07/29/24 15:44 90 18 224/107 07/29/24 15:42 224/107 07/29/24 15:15 90 18 98 Room Air* 0 21 07/29/24 15:15 97.6 90 18 224/107 (146) 98 97.6 07/29/24 15:00 98.6 98 20 231/136 (167) 98 224/107 (146) Lab Test 07/29/24 15:31 Range/Units White Blood Count 11.7 H 4.4-10.8 10^3/uL Red Blood Count 5.41 4.5-5.90 10^6/uL Hemoglobin 15.4 13.5-17.5 g/dL Hematocrit 47.1 41.0-53.0 % Mean Corpuscular Volume 86.9 80.0-100.0 fL Mean Corpuscular Hemoglobin 28.4 28.0-32.0 pg Mean Corpuscular Hemoglobin Concent 32.6 32.0-36.0 g/dL Red Cell Distribution Width 14.5 H 11.8-14.3 % Platelet Count 401 140-450 10^3/uL Mean Platelet Volume 8.1 6.9-10.8 fL Neutrophils (%) (Auto) 65.8 37.0-80.0 % Lymphocytes (%) (Auto) 24.2 10.0-50.0 % Monocytes (%) (Auto) 6.7 0.0-12.0 % Eosinophils (%) (Auto) 3.0 0.0-7.0 % Basophils (%) (Auto) 0.3 0.0-2.0 % Neutrophils # (Auto) 7.7 1.6-8.6 10 ^3/uL Lymphocytes # (Auto) 2.8 0.4-5.4 10 ^3/uL Monocytes # (Auto) 0.8 0-1.3 10 ^3/uL Eosinophils # (Auto) 0.4 0-0.8 10 ^3/uL Basophils # (Auto) 0 0-0.2 10 ^3/uL Nucleated Red Blood Cells 0.2 % Sodium Level 141 136-145 mmol/L Potassium Level 3.8 3.5-5.1 mmol/L Chloride Level 108 H 98-107 mmol/L Carbon Dioxide Level 24 20-31 mmol/L Anion Gap 9 5-15 Blood Urea Nitrogen 16 9-23 mg/dL Creatinine 0.67 L 0.700-1.30 mg/dL Glomerular Filtration Rate Calc 106 >90 mL/min BUN/Creatinine Ratio 23.9 H 10.0-20.0 Serum Glucose 126 H 74-106 mg/dL Calcium Level 9.5 8.7-10.4 mg/dL Current Medications Medications (Trade) Dose Ordered Sig/Linette Route Start Time Stop Time Status Last Admin Hydralazine HCl (Apresoline Injection) 20 mg ONCE ONCE IV 07/29/24 15:30 07/29/24 15:31 DC 07/29/24 15:42 Hydromorphone HCl (Dilaudid Innjection) 1 mg ONCE ONCE IV 07/29/24 15:30 07/29/24 15:31 DC 07/29/24 15:44 Ondansetron HCl (Zofran) 4 mg ONCE ONCE IV 07/29/24 15:30 07/29/24 15:31 DC 07/29/24 15:42 Hydromorphone HCl (Dilaudid Injection) 1 mg ONCE ONCE IV 07/29/24 16:45 07/29/24 16:46 DC 07/29/24 16:41 The patient had a CT scan done yesterday with the results already listed The patient was extremely hypertensive so was given hydralazine 20 mg IV push The patient was also given Dilaudid for the pain and Zofran for the nausea The patient continued with pain so we did repeat the Dilaudid At this time the patient will be admitted with a diagnosis of pelvic pain accelerated hypertension The patient understands and agrees with the management. Images Reviewed?: Images reviewed and evaluated by me Time of 1ST Reevaluation: 15:50 Reevaluation 1ST: Unchanged Patient Education/Counseling: Diagnosis, Treatment, Prognosis Family Education/Counseling: No Family Present Additional Information - I reviewed the following notes from patient's past medical encounters: 07/27/24 DX HIP PAIN, 07/23/24 DX:DEGENERATIVE JOINT DISEASE - The following tests were ordered, and results were reviewed by me: CBC, CMP - Additional information was gathered from interviewing the following independent Historian: EMS - I discussed treatments and results with medical personnel and: PATIENT Departure 1 Departure Time of Disposition: 17:35 Impression: Primary Impression: History of fall Additional Impressions: Accelerated hypertension Pelvic pain Disposition: ADMITTED INPATIENT Admit to: Tele Condition: Fair Critical Care Note Critical Care Time?: No Stability Stability form required: Yes Unstable for transfer: ED Physician Assesment (Clinical assesment) Heart Score Heart Score: Heart Score Response (Comments) Value History N/A 0 EKG N/A 0 Age N/A 0 Risk Factors N/A 0 Troponin N/A 0 Total 0 I personally scribed for MANI RODRIGUEZ MD ([email or web address]) on 07/29/24 at 15:33. Electronically submitted by Marifer Osei ([employer]). I personally scribed for MANI RODRIGUEZ MD ([email or web address]) on 07/29/24 at 15:34. Electronically submitted by Marifer Osei ([employer]). I personally scribed for MANI RODRIGUEZ MD ([email or web address]) on 07/29/24 at 15:40. Electronically submitted by Marifer Osei ([employer]). MANI RODRIGUEZ MD Jul 29, 2024 15:33
[2024-07-29 15:40] LABS: Basophils # (auto) 0 10 ^3/uL (0-0.2); Basophils % (auto) 0.3 % (0.0-2.0); Eosinophils # (auto) 0.4 10 ^3/uL (0-0.8); Hematocrit 47.1 % (41.0-53.0); Hemoglobin 15.4 g/dL (13.5-17.5); Lymphocytes # (auto) 2.8 10 ^3/uL (0.4-5.4); Lymphocytes % (auto) 24.2 % (10.0-50.0); Mean Corpuscular Hemoglobin 28.4 pg (28.0-32.0); Mean Corpuscular Hgb Conc. 32.6 g/dL (32.0-36.0); Mean Corpuscular Volume 86.9 fL (80.0-100.0); Monocytes # (auto) 0.8 10 ^3/uL (0-1.3); Monocytes % (auto) 6.7 % (0.0-12.0); Neutrophils # (auto) 7.7 10 ^3/uL (1.6-8.6); Neutrophils % (auto) 65.8 % (37.0-80.0); Nucleated Red Blood Cells % 0.2 %; Platelet Count (auto) 401 10^3/uL (140-450); Red Blood Cells 5.41 10^6/uL (4.5-5.90); Red Cell Distribution Width 14.5 % (11.8-14.3); White Blood Cell 11.7 10^3/uL (4.4-10.8)
[2024-07-29] MEDS: ONDANSETRON HCL 4 MG/2 ML VIAL IV ONE (15:42)
[2024-07-29] MEDS: hydrALAZINE HCL 20 MG/ML VL IV ONE (15:42)
[2024-07-29] MEDS: HYDROMORPHONE HCL 1 MG/ML INJ IV ONE (15:44)
[2024-07-29 15:47] LABS: Potassium 3.8 mmol/L (3.5-5.1); Sodium 141 mmol/L (136-145)
[2024-07-29 15:48] LABS: Anion Gap 9 (5-15); Carbon Dioxide 24 mmol/L (20-31)
[2024-07-29 15:49] LABS: Calcium 9.5 mg/dL (8.7-10.4)
[2024-07-29 15:54] LABS: BUN/Creatinine Ratio 23.9 (10.0-20.0); Blood Urea Nitrogen 16 mg/dL (9-23)
[2024-07-29 15:56] LABS: Chloride 108 mmol/L (98-107); Glucose 126 mg/dL (74-106)
[2024-07-29] MEDS: HYDROmorphone HCL 2 MG/ML VL/or syr IV ONE ×2 (16:41→20:59)
[2024-07-29 19:40] VITALS: PULSE 99; RESP 13; O2SAT 94
[2024-07-29] MEDS ORDERED: MORPHINE SULFATE INJ 2 MG/ml SYRG IV PRN (21:30)
[2024-07-29] MEDS ORDERED: ACETAMINOPHEN 325 MG TAB PO PRN (21:30)
[2024-07-29] MEDS ORDERED: ONDANSETRON HCL 4 MG/2 ML VIAL IV PRN (21:30)
[2024-07-29] MEDS ORDERED: NITROGLYCERIN 0.4 MG SL TAB SL PRN (21:30)
[2024-07-29] MEDS: SODIUM CHLORIDE 0.9% 1,000 ML IV SCH (22:00)
[2024-07-29] MEDS: SODIUM CHLOR 0.9% PF (SALINE LOCK) 10ML VIAL/SYR IV SCH (22:08)
[2024-07-29 23:27] VITALS: PULSE 88; RESP 18; O2SAT 94
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
[2024-07-30] VITALS (7 sets, daily range): BP systolic 117–183; BP diastolic 77–85; PULSE 76–100; RESP 17–18; TEMP 97.5–98.3; O2SAT 91–96
[2024-07-30 00:35] LABS: INR 1.02 (0.9-1.15); Partial Thromboplastin Time 24.8 SEC (24.5-34.5); Prothrombin Time 10.8 sec (9.3-11.8)
[2024-07-30 00:39] LABS: Albumin 3.6 g/dL (3.2-4.8); Alkaline Phosphatase 112 U/L (46-116); Anion Gap 9 (5-15); BUN/Creatinine Ratio 19.1 (10.0-20.0); Blood Urea Nitrogen 21 mg/dL (9-23); Calcium 9.2 mg/dL (8.7-10.4); Carbon Dioxide 25 mmol/L (20-31); Glucose 104 mg/dL (74-106); Magnesium 1.7 mg/dL (1.6-2.6); Potassium 4.2 mmol/L (3.5-5.1); Sodium 142 mmol/L (136-145)
[2024-07-30 00:40] LABS: Bilirubin, Total 0.9 mg/dL (0.2-1.0); Total Protein 5.8 g/dL (5.7-8.2)
[2024-07-30 00:42] LABS: Alanine Aminotransferase 41 U/L (7-40); Aspartate Aminotransferase 44 U/L (13-40); Chloride 108 mmol/L (98-107)
[2024-07-30 01:15] LABS: Basophils # (auto) 0.1 10 ^3/uL (0-0.2); Basophils % (auto) 1.2 % (0.0-2.0); Eosinophils # (auto) 0.1 10 ^3/uL (0-0.8); Hematocrit 45.1 % (41.0-53.0); Hemoglobin 14.7 g/dL (13.5-17.5); Lymphocytes # (auto) 2.4 10 ^3/uL (0.4-5.4); Lymphocytes % (auto) 19.9 % (10.0-50.0); Mean Corpuscular Hemoglobin 28.4 pg (28.0-32.0); Mean Corpuscular Hgb Conc. 32.7 g/dL (32.0-36.0); Mean Corpuscular Volume 86.8 fL (80.0-100.0); Monocytes # (auto) 1.1 10 ^3/uL (0-1.3); Neutrophils # (auto) 8.2 10 ^3/uL (1.6-8.6); Neutrophils % (auto) 68.9 % (37.0-80.0); Nucleated Red Blood Cells % 0.2 %; Platelet Count (auto) 381 10^3/uL (140-450); Red Blood Cells 5.19 10^6/uL (4.5-5.90); Red Cell Distribution Width 14.8 % (11.8-14.3); White Blood Cell 11.8 10^3/uL (4.4-10.8)
[2024-07-30 01:26] LABS: Blood Alcohol < 3.0 mg/dL (<10)
[2024-07-30] MEDS: MORPHINE SULFATE INJ 2 MG/ml SYRG IV PRN (04:00)
[2024-07-30] MEDS ORDERED: LISI20TA56 PO (05:27)
[2024-07-30 07:35] LABS: Alanine Aminotransferase 35 U/L (7-40); Albumin 3.5 g/dL (3.2-4.8); Alkaline Phosphatase 100 U/L (46-116); Anion Gap 8 (5-15); BUN/Creatinine Ratio 19.5 (10.0-20.0); Carbon Dioxide 24 mmol/L (20-31); Sodium 141 mmol/L (136-145)
[2024-07-30 07:36] LABS: Bilirubin, Total 0.8 mg/dL (0.2-1.0)
[2024-07-30 07:38] LABS: Aspartate Aminotransferase 41 U/L (13-40); Blood Urea Nitrogen 24 mg/dL (9-23); Chloride 109 mmol/L (98-107); Glucose 111 mg/dL (74-106); Total Protein 5.6 g/dL (5.7-8.2)
[2024-07-30 07:50] LABS: Basophils # (auto) 0.1 10 ^3/uL (0-0.2); Basophils % (auto) 1.1 % (0.0-2.0); Eosinophils # (auto) 0.3 10 ^3/uL (0-0.8); Eosinophils % (auto) 3.1 % (0.0-7.0); Hematocrit 41.6 % (41.0-53.0); Hemoglobin 13.8 g/dL (13.5-17.5); Mean Corpuscular Hemoglobin 28.8 pg (28.0-32.0); Mean Corpuscular Hgb Conc. 33.1 g/dL (32.0-36.0); Monocytes # (auto) 0.9 10 ^3/uL (0-1.3); Monocytes % (auto) 9.2 % (0.0-12.0); Neutrophils # (auto) 5.7 10 ^3/uL (1.6-8.6); Neutrophils % (auto) 56.6 % (37.0-80.0); Platelet Count (auto) 377 10^3/uL (140-450); Red Blood Cells 4.78 10^6/uL (4.5-5.90); Red Cell Distribution Width 14.6 % (11.8-14.3); White Blood Cell 10.2 10^3/uL (4.4-10.8)
[2024-07-30] MEDS: PANTOPRAZOLE 40 MG/10 ML VIAL INJ IV SCH (09:05)
--- NOTE | 2024-07-30 10:50 | DVH ---
Bilateral lower extremity venous duplex Clinical History: RIGHT LEG SWELLING Comparison: None Technique: Duplex Doppler evaluation of the deep venous systems of both lower extremities from the co mmon femoral veins to the popliteal veins including color Doppler and spectral/pulsed waveform analys is was performed. Findings: RIGHT SIDE: The common femoral vein demonstrates appropriate compressibility and waveform variability. There is compressibility/patency of the great saphenous vein at the proximal thigh. The femoral vein demonstrates appropriate compressibility and waveform variability. The deep femoral vein demonstrates appropriate compressibility and waveform variability. The popliteal vein demonstrates appropriate compressibility and waveform variability. There is color flow at the tibioperoneal trunk and in the posterior tibial vein. LEFT SIDE: The common femoral vein demonstrates appropriate compressibility and waveform variability. There is compressibility/patency of the great saphenous vein at the proximal thigh. The proximal femoral vein demonstrates appropriate compressibility and waveform variability. The deep femoral vein demonstrates appropriate compressibility and waveform variability. Impression: 1. No right or left femoropopliteal venous thrombosis.
[2024-07-30 11:17] LABS: Urine Bacteria None Seen /hpf (None Seen)
[2024-07-30 11:39] LABS: Urine Blood Negative /uL (Negative); Urine Clarity Clear (Clear); Urine Color Yellow (Yellow); Urine Hyaline Cast FEW /lpf (0 - 2); Urine Mucus FEW (None Seen); Urine Protein, UAD 1+ (Negative); Urine Specific Gravity 1.018 (1.001-1.035); Urine Squamous Epithelial Cell FEW /hpf (<5); Urine Urobilinogen Normal (Negative); Urine WBC 6 /HPF (0-3); Urine pH 5.5 (5.0-9.0)
[2024-07-30 11:46] LABS: Opiate Scree,Urine Pos (NEGATIVE)
--- NOTE | 2024-07-30 11:46 | DVH ---
Procedure: CT LEFT LOWER EXTREMITY W/O CON 07/30/2024 10:26 AM Indication: mechanical fall on stump, hematoma Comparison Study: None Technique: Axial images left hip were obtained and reformatted in coronal and sagittal planes. All CT scans at this medical facility are performed using dose modulation techniques as appropriate t o a performed exam including the following: Automated exposure control was utilized; adjustment of th e MA and/or KV according to patient size; and use of iterative reconstruction technique. CT Dose: CTDI volume is 15.1 mGy. Dose-length product is 655.8 mGy*cm FINDINGS: Bones: No acute fracture or dislocation. The left hip joint is intact. Symphysis pubis is intact. Th e sacroiliac joints are unremarkable. Degenerative disc disease and posterior facet arthropathy in t he lower lumbar spine noted. Mild hip joint osteoarthritis. Soft tissues: Moderate subcutaneous edema noted in the upper thigh. Loss of subcutaneous fat over the lateral upper thigh with associated heterotopic ossification likely sequela prior injury. No discret e hematoma or fluid collection noted in this limited unenhanced study. Other: Multiple bladder diverticula are seen 1 mm containing a 1 cm stone. Prostate is mildly enlarg ed. Moderate atherosclerotic disease noted. Surgical clips along the bilateral spermatic cords noted . Small left hydrocele. IMPRESSION: 1. No acute osseous abnormality. 2. Moderate subcutaneous edema in the upper thigh. No discrete fluid collection or hematoma noted.
[2024-07-30 11:48] LABS: Amphetamine Screen, Urine Pos (NEGATIVE); Barbiturate Scree,Urine Neg (NEGATIVE); Benzodiazephine Screen, Urine Neg (NEGATIVE); Cannabinoid Screen, Urine Pos (NEGATIVE); Cocaine Screen, Urine Neg (NEGATIVE); Phencyclidine Screen, Urine Neg (NEGATIVE)
[2024-07-30] MEDS: IBUPROFEN 400 MG TAB PO ONE (13:15)
[2024-07-30] MEDS: ACETAMINOPHEN 325 MG TAB PO ONE (13:15)
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
[2024-07-30] MEDS ORDERED: IBUPROFEN 400 MG TAB PO PRN (17:00)
[2024-07-30] MEDS: HYDROcodone-ACET 10/325MG TAB PO PRN (22:53)
[2024-07-31 01:00] VITALS: BP 158/79; PULSE 83; RESP 20; TEMP 98.5; O2SAT 72; O2SAT 92
[2024-07-31 05:00] VITALS: BP 178/107; PULSE 98; RESP 19; TEMP 98.1; O2SAT 96
[2024-07-31] MEDS: cloNIDine HCL 0.1 MG TAB PO PRN (06:06)
[2024-07-31] MEDS: hydrALAZINE HCL 20 MG/ML VL IV ONE (07:15)
[2024-07-31 07:36] LABS: Basophils # (auto) 0.2 10 ^3/uL (0-0.2); Basophils % (auto) 1.5 % (0.0-2.0); Eosinophils # (auto) 0.5 10 ^3/uL (0-0.8); Hematocrit 40.2 % (41.0-53.0); Hemoglobin 13.3 g/dL (13.5-17.5); Lymphocytes # (auto) 3.1 10 ^3/uL (0.4-5.4); Lymphocytes % (auto) 27.2 % (10.0-50.0); Mean Corpuscular Hemoglobin 28.8 pg (28.0-32.0); Mean Corpuscular Volume 87.3 fL (80.0-100.0); Monocytes % (auto) 8.4 % (0.0-12.0); Neutrophils # (auto) 6.7 10 ^3/uL (1.6-8.6); Neutrophils % (auto) 58.9 % (37.0-80.0); Nucleated Red Blood Cells % 0.1 %; Platelet Count (auto) 371 10^3/uL (140-450); Red Cell Distribution Width 14.6 % (11.8-14.3); White Blood Cell 11.4 10^3/uL (4.4-10.8)
[2024-07-31 07:50] LABS: Alanine Aminotransferase 33 U/L (7-40); Albumin 3.3 g/dL (3.2-4.8); BUN/Creatinine Ratio 32.1 (10.0-20.0); CRP High Sensitivity 0.16 mg/dL (<1.0); Glucose 93 mg/dL (74-106); Magnesium 1.7 mg/dL (1.6-2.6)
[2024-07-31 07:51] LABS: Creatine Kinase IFCC 81 U/L (46-171)
[2024-07-31 07:52] LABS: Anion Gap 9 (5-15); Aspartate Aminotransferase 41 U/L (13-40); Blood Urea Nitrogen 25 mg/dL (9-23); Chloride 108 mmol/L (98-107); Potassium 4.1 mmol/L (3.5-5.1); Sodium 141 mmol/L (136-145); Total Protein 5.5 g/dL (5.7-8.2)
[2024-07-31 07:53] LABS: Calcium 9.1 mg/dL (8.7-10.4); Carbon Dioxide 24 mmol/L (20-31)
[2024-07-31 08:01] LABS: Alkaline Phosphatase 98 U/L (46-116)
[2024-07-31 08:02] LABS: Erythrocyte Sedimentation Rate 14 mm/hr (0-20)
[2024-07-31 09:00] VITALS: BP 157/82; PULSE 76; RESP 20; TEMP 98.2; O2SAT 94
[2024-07-31] MEDS: LISINOPRIL 20 MG TAB PO SCH (10:04)
--- NOTE | 2024-07-31 11:29 | DVHDSRES ---
Discharge Summary Date of Admission Resident Creating Document: LISA SIDHU RESIDENT Jul 29, 2024 at 21:28 Date of Discharge: Jul 31, 2024 Admitting Diagnosis Intractable left stump pain, rule out acute compartment syndrome Labs/Diagnostic Data: Laboratory Results Test 07/31/24 06:39 07/30/24 11:00 07/29/24 23:59 White Blood Count 11.4 10^3/uL (4.4-10.8) Red Blood Count 4.60 10^6/uL (4.5-5.90) Hemoglobin 13.3 g/dL (13.5-17.5) Hematocrit 40.2 % (41.0-53.0) Mean Corpuscular Volume 87.3 fL (80.0-100.0) Mean Corpuscular Hemoglobin 28.8 pg (28.0-32.0) Mean Corpuscular Hemoglobin Concent 33.0 g/dL (32.0-36.0) Red Cell Distribution Width 14.6 % (11.8-14.3) Platelet Count 371 10^3/uL (140-450) Mean Platelet Volume 8.6 fL (6.9-10.8) Neutrophils (%) (Auto) 58.9 % (37.0-80.0) Lymphocytes (%) (Auto) 27.2 % (10.0-50.0) Monocytes (%) (Auto) 8.4 % (0.0-12.0) Eosinophils (%) (Auto) 4.0 % (0.0-7.0) Basophils (%) (Auto) 1.5 % (0.0-2.0) Neutrophils # (Auto) 6.7 10 ^3/uL (1.6-8.6) Lymphocytes # (Auto) 3.1 10 ^3/uL (0.4-5.4) Monocytes # (Auto) 1.0 10 ^3/uL (0-1.3) Eosinophils # (Auto) 0.5 10 ^3/uL (0-0.8) Basophils # (Auto) 0.2 10 ^3/uL (0-0.2) Nucleated Red Blood Cells 0.1 % Erythrocyte Sedimentation Rate 14 mm/hr (0-20) Sodium Level 141 mmol/L (136-145) Potassium Level 4.1 mmol/L (3.5-5.1) Chloride Level 108 mmol/L (98-107) Carbon Dioxide Level 24 mmol/L (20-31) Anion Gap 9 (5-15) Blood Urea Nitrogen 25 mg/dL (9-23) Creatinine 0.78 mg/dL (0.700-1.30) Glomerular Filtration Rate Calc 101 mL/min (>90) BUN/Creatinine Ratio 32.1 (10.0-20.0) Serum Glucose 93 mg/dL (74-106) Calcium Level 9.1 mg/dL (8.7-10.4) Magnesium Level 1.7 mg/dL (1.6-2.6) Total Bilirubin 1.0 mg/dL (0.2-1.0) Aspartate Amino Transferase (AST) 41 U/L (13-40) Alanine Aminotransferase (ALT) 33 U/L (7-40) Alkaline Phosphatase 98 U/L (46-116) Creatine Kinase 81 U/L (46-171) C-Reactive Protein High Sensitivity 0.16 mg/dL (<1.0) Total Protein 5.5 g/dL (5.7-8.2) Albumin 3.3 g/dL (3.2-4.8) Urine Color Yellow (Yellow) Urine Clarity Clear (Clear) Urine pH 5.5 (5.0-9.0) Urine Specific [place] 1.018 (1.001-1.035) Urine Protein 1+ (Negative) Urine Ketones Negative (Negative) Urine Blood Negative /uL (Negative) Urine Nitrite Negative (Negative) Urine Bilirubin Negative (Negative) Urine Urobilinogen Normal mg/dL (Negative) Urine Leukocyte Esterase Negative /uL (Negative) Urine RBC 2 /hpf (0 - 3) Urine Microscopic WBC 6 /HPF (0-3) Urine Squamous Epithelial Cells Few /hpf (<5) Urine Bacteria None seen /hpf (None Seen) Urine Hyaline Casts Few /lpf (0 - 2) Urine Mucus Few (None Seen) Urine Glucose Normal mg/dL (Normal) Urine Opiates Screen Pos (NEGATIVE) Urine Fentanyl Screen Pos (NEGATIVE) Urine Barbiturates Screen Neg (NEGATIVE) Urine Phencyclidine Screen Neg (NEGATIVE) Urine Amphetamines Screen Pos (NEGATIVE) Urine Benzodiazepines Screen Neg (NEGATIVE) Urine Cocaine Screen Neg (NEGATIVE) Urine Cannabinoids Screen Pos (NEGATIVE) Prothrombin Time 10.8 sec (9.3-11.8) Prothrombin Time INR 1.02 (0.9-1.15) Activated Partial Thromboplast Time 24.8 SEC (24.5-34.5) Hemoglobin A1c 5.6 % A1C (<5.7) Lactic Acid Level 1.0 mmol/L (0.4-2.0) B-Type Natriuretic Peptide 73.15 pg/mL (0-100) Thyroid Stimulating Hormone (TSH) 2.97 uIU/mL (0.55-4.78) Plasma/Serum Blood Alcohol < 3.0 mg/dL (<10) Other Laboratory Tests 07/31/24 06:39 Brief Hx & Hospital Course: HPI-Patient is 64 years old male with past medical hypertension, 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 As per patient he had a fall 4 days before. Following Goyal he has been having severe pain in his left stump. Patient came to the ER 2 days before and had a CT scan which ruled out any fracture. But the patient's pain has been getting worse, 10/10, excruciating pain, or touching, no relieving factor. Patient patient also reported having right leg swelling for last 1 month. Patient denied any head injury or consciousness, dysarthria, change in vision, acute any other joint pain or swelling. Initial lab workup revealed leukocytosis WBC 11.7, mildly elevated AST 44, mildly elevated ALT 41. UDS positive for cannabinoids and amphetamine, fentanyl, opiates. Negative for UTI. Doppler study of lower extremity negative for DVT. CT scan of the left lower extremity revealed- No acute osseous abnormality. Moderate subcutaneous edema in the upper thigh. No discrete fluid collection or hematoma noted. Hospital course-patient came to the ER status post fall due to intractable pain in the left stump. Patient was admitted to the hospital for intractable left stump pain to rule out acute compartment syndrome or fracture.Initial lab workup revealed leukocytosis WBC 11.7, mildly elevated AST 44, mildly elevated ALT 41. UDS positive for cannabinoids and amphetamine, fentanyl, opiates. Negative for UTI. Doppler study of lower extremity negative for DVT. CT scan of the left lower extremity revealed- No acute osseous abnormality. Moderate subcutaneous edema in the upper thigh. No discrete fluid collection or hematoma noted. Ruled out Compartment syndrome or acute fracture. Patient's symptoms improved with conservative management. Patient is being discharged home in a hemodynamically stable condition. On discharge patient's vitals were stable. Patient was advised to follow up with the primary care physician in 1 week. Was counseled about substance abuse. Diagnosis Intractable left thigh stump pain -rule out acute compartment syndrome -rule out acute fracture of the left hip Status post mechanical fall Reactive leukocytosis no Sepsis /SIRS Hypertensive urgency-blood pressure elevation was likely due to severe pain Right leg swelling likely due to lack of proper mobilization polySubstance abuse Pain induced sinus tachycardia Alcoholism Smoker Discharge plan -please resume home pain medication Kress as prescribed before Kasy-fka-fslhasj pain medication p.r.n.-ibuprofen 400 mg q.6h by mouth is needed Resume Pepcid 20 mg by mouth 2 times a day Resume lisinopril 20 mg p.o. daily Please follow up with the primary care physician in 1 week Keep a record of blood pressure at home to be reviewed by the primary care physician Operations or Procedures [place] [id number] Ph: [phone] DIAGNOSTIC IMAGING Diagnostic Imaging Report : [id number] Signed PATIENT: YOEL MANNING ACCT: [id number] UNIT: [id number] : 1960 LOC: CENTRAL ROOM / BED: [facility] / A AGE / SEX: 64 / M ADM STATUS: ADM IN SERVICE [id number] ORDERING PHYSICIAN: LISA SIDHU RESIDENT PROCEDURE(s): BLDVT - BiLat Lower DVT REASON: RIGHT LEG SWELLING ORDER NUMBER(s): [id number], ACCESSION NUMBER(s): [id number] Bilateral lower extremity venous duplex Clinical History: RIGHT LEG SWELLING Comparison: None Technique: Duplex Doppler evaluation of the deep venous systems of both lower extremities from the common femoral veins to the popliteal veins including color Doppler and spectral/pulsed waveform analysis was performed. Findings: RIGHT SIDE: The common femoral vein demonstrates appropriate compressibility and waveform variability. There is compressibility/patency of the great saphenous vein at the proximal thigh. The femoral vein demonstrates appropriate compressibility and waveform variability. The deep femoral vein demonstrates appropriate compressibility and waveform variability. The popliteal vein demonstrates appropriate compressibility and waveform variability. There is color flow at the tibioperoneal trunk and in the posterior tibial vein. LEFT SIDE: The common femoral vein demonstrates appropriate compressibility and waveform variability. There is compressibility/patency of the great saphenous vein at the proximal thigh. The proximal femoral vein demonstrates appropriate compressibility and waveform variability. The deep femoral vein demonstrates appropriate compressibility and waveform variability. Impression: 1. No right or left femoropopliteal venous thrombosis. ATED BY: RADHA HERNANDEZ MD DICTATED DATE/TIME: 07/30/241046 SIGNED BY: RADHA HERNANDEZ MD SIGNED DATE/TIME: 07/30/241046 CC: [place] [id number] Ph: [phone] DIAGNOSTIC IMAGING Diagnostic Imaging Report : [id number] Signed PATIENT: YOEL MANNING ACCT: [id number] UNIT: [id number] : 1960 LOC: CENTRAL ROOM / BED: [facility] / AGE / SEX: 64 / M ADM STATUS: ADM IN SERVICE ORDERING PHYSICIAN: SEBASTIAN VO RESIDENT PROCEDURE(s): LLEX - LEFT LOWER EXTREMITY W/O CON REASON: mechanical fall on stump, ? hematoma ORDER NUMBER(s): [id number], ACCESSION NUMBER(s): [id number] Procedure: CT LEFT LOWER EXTREMITY W/O CON 07/30/2024 10:26 AM Indication: mechanical fall on stump, hematoma Comparison Study: None Technique: Axial images left hip were obtained and reformatted in coronal and sagittal planes. All CT scans at this medical facility are performed using dose modulation techniques as appropriate to a performed exam including the following: Automated exposure control was utilized; adjustment of the MA and/or KV according to patient size; and use of iterative reconstruction technique. CT Dose: CTDI volume is 15.1 mGy. Dose-length product is 655.8 mGy*cm FINDINGS: Bones: No acute fracture or dislocation. The left hip joint is intact. Symphysis pubis is intact. The sacroiliac joints are unremarkable. Degenerative disc disease and posterior facet arthropathy in the lower lumbar spine noted. Mild hip joint osteoarthritis. Soft tissues: Moderate subcutaneous edema noted in the upper thigh. Loss of subcutaneous fat over the lateral upper thigh with associated heterotopic ossification likely sequela prior injury. No discrete hematoma or fluid collection noted in this limited unenhanced study. Other: Multiple bladder diverticula are seen 1 mm containing a 1 cm stone. Prostate is mildly enlarged. Moderate atherosclerotic disease noted. Surgical clips along the bilateral spermatic cords noted. Small left hydrocele. IMPRESSION: 1. No acute osseous abnormality. 2. Moderate subcutaneous edema in the upper thigh. No discrete fluid collection or hematoma noted. ATED BY: RADHA HERNANDEZ MD DICTATED DATE/TIME: 07/30/24 1144 SIGNED BY: RADHA HERNANDEZ MD SIGNED DATE/TIME: 07/30/24 1144 CC: Condition at Discharge: Stable Final Diagnosis/Problems List Intractable left thigh stump pain -rule out acute compartment syndrome -rule out acute fracture of the left hip Status post mechanical fall Reactive leukocytosis no Sepsis /SIRS Hypertensive urgency-blood pressure elevation was likely due to severe pain Right leg swelling likely due to lack of proper mobilization polySubstance abuse Pain induced Sinus Tachycardia Alcoholism Smoker Discharge Disposition: Home Discharge Instruct/Medications Follow Up/Referral: Please follow up with the primary care physician in 1 week Keep a record of blood pressure at home to be reviewed by the primary care physician Medications: -please resume home pain medication Kress as prescribed before Pxqd-geh-nlifinw pain medication p.r.n.-ibuprofen 400 mg q.6h by mouth is needed Resume Pepcid 20 mg by mouth 2 times a day Resume lisinopril 20 mg p.o. daily Please follow up with the primary care physician in 1 week Keep a record of blood pressure at home to be reviewed by the primary care physician Discharge Statement: "Patient was advised to return to the ER or call 911 if any headaches, dizziness, shortness of breath, chest pain, abdominal pain, bleeding, fevers, or worsening of medical condition. Patient was counseled about treatment plan, medications, possible side effects, patientverbalized understanding. All questions were answered to the best of my ability. This discharge took greater then 30 minutes in planning, reviewing documentation, counseling the patient, and discussing with other team members." ASSESSMENT ASSESSMENT Assessment Date of Service: Jul 31, 2024 Billing Provider: CLIF TRIVEDI MD Common Visit Codes: 20259-MYN/OBS DISCH DAY >30min LISA SIDHU RESIDENT Jul 31, 2024 11:29 CLIF TRIVEDI MD Aug 02, 2024 00:35
[2024-07-31 13:00] VITALS: BP 155/101; PULSE 85; RESP 20; TEMP 97.7; O2SAT 95
[2024-07-31] MEDS: cloNIDine HCL 0.1 MG TAB PO ONE ×2 (13:41→16:00)
[2024-07-31 15:20] VITALS: BP 154/82; PULSE 78
[2024-07-31 17:00] VITALS: BP 144/79; PULSE 82; RESP 20; TEMP 97.6; O2SAT 95
== END 2024-07-31 17:30 | disposition home or self-care (01) | DRG 351 ==
LOC: ER 14:56 → EDBD 14:56 → OVERFLOW 21:28 → CENTRAL 23:26
PROVIDERS: ADMIT Student in an Organized Health Care Education/Training Program; ATTEND Emergency Medicine
DX: M79.652 Pain in left thigh (principal); F12.10 Cannabis abuse, uncomplicated; F17.210 Nicotine dependence, cigarettes, uncomplicated; I16.0 Hypertensive urgency; R00.0 Tachycardia, unspecified; F15.10 Other stimulant abuse, uncomplicated; W18.39XA Other fall on same level, initial encounter; I10 Essential (primary) hypertension; Z91.030 Bee allergy status; Z79.899 Other long term (current) drug therapy; Z79.1 Long term (current) use of non-steroidal anti-inflammatories (NSAID); Z79.891 Long term (current) use of opiate analgesic; Z79.82 Long term (current) use of aspirin; Z80.8 Family history of malignant neoplasm of other organs or systems; Y93.89 Activity, other specified; Y92.89 Other specified places as the place of occurrence of the external cause; Y99.8 Other external cause status
CPT/HCPCS: 36415; 73700; 80048; 80053; 80307; 80320; 81001; 82550; 83036; 83605; 83735; 83880; 84443; 85025; 85610; 85652; 85730; 86141; 93970; 96374; 96375; G0378; J2405; J2470